=== PATIENT | male | born 1995 | race Caucasian/White ===

== ENCOUNTER 2018-10-18 17:40 | Emergency (ER) | payer SELFPAY ==
[~2018-10-18] VITALS: Ht 154.9 cm; Wt 45.5 kg
[2018-10-18 17:49] VITALS: BP 133/58; Ht 154.9 cm; Wt 45.5 kg
--- NOTE | 2018-10-18 21:40 | ERD ---
ER Documentation Chief Complaint Chief Complaint L 4th digit finger pain/swelling/bruising s/p injury at work HPI Patient is a 23 year-old male presents the ER for concern of left fourth digit pain and swelling. Patient states he dropped a piece of plywood on his finger at work. Patient reports some bleeding under his left fourth digit nailbed. Patient denies any previous fractures or dislocations affected extremity. Patient is right-hand dominant. ROS All systems reviewed and are negative except as per history of present illness. Allergies Allergies: Coded Allergies: No Known Allergy (Unverified , 10/18/18) FmHx Family History: No diabetes Physical Exam Vitals Vital Signs Date Temp Pulse Resp B/P (MAP) Pulse Ox O2 O2 Flow FiO2 Time Delivery Rate 10/18/18 98.1 101 20 133/58 99 17:49 (83) Physical Exam GENERAL: Well-developed, well-nourished male. Appears in no acute distress. HEAD: Normocephalic, atraumatic. EYES: Pupils are equally reactive bilaterally. EOMs grossly intact. No conjunctival erythema. NECK: Supple. No meningismus. Normal range of motion of the neck. LUNG: No acute respiratory distress EXTREMITIES: Equal pulses bilaterally. No peripheral clubbing, cyanosis or edema. No unilateral leg swelling. NEUROLOGIC: Alert and oriented. Moving all four extremities without any difficulty. Normal speech. Steady gait. LUE: No obvious deformity. Mild swelling noted to the distal tip of the fourth digit. Subungual hematoma noted to the fourth digit nail. Able to bend at PIP, DIP and MCP joints of the affected digit. Normal range of motion of wrist. Sensation intact to light touch. Neurovascularly intact. (Able to give thumbs up, make an ok sign, cross digits 2 and 3, thumb to pinky opposition. 2+ RP.) No snuffbox tenderness. Results 24 hrs Current Medications Medications Dose Sig/Milind Start Time Status Last (Trade) Ordered Route PRN Stop Time Admin Dose Reason Admin Ibuprofen 600 mg ONCE ONCE 10/18/18 DC 10/18/18 (Motrin) PO 22:00 22:02 10/18/18 22:01 Procedures/MDM ED COURSE: The patient was stable throughout ED course. I kept the patient and/or family informed of laboratory and diagnostic imaging results throughout the ED course. DIAGNOSTIC IMAGING: Read by radiologist. Patient: JOSHUA MCLEAN : 1995 Age: 23 Sex: M MR #: [id number] [facility] #: [id number] DOS: 10/18/18 2133 Ordering MD: CHRIS LANDA PA-C Location: [facility] Room/Bed: PROCEDURE: Left hand x-ray CLINICAL INDICATION: pain TECHNIQUE: AP, lateral and oblique views of the left hand were obtained. COMPARISON: None FINDINGS: There is normal mineralization. There is a nondisplaced fracture of the distal phalanx of the fourth digit. There are no significant degenerative changes. There is no significant soft tissue swelling. RPTAT: AA IMPRESSION: Nondisplaced fracture of the distal phalanx of the fourth digit. .Antoine Rodriguez MD, MD Date Time Electronically viewed and signed by .Antoine Rodriguez MD, MD on 10/18/2018 22:0 9 .S/ CC: CHRIS LANDA PA-C [phone] PROCEDURES: Nail trephination by me: Anesthesia: none Location: Left fourth digit nailbed Tendon/Joint/Nerves: No injury Technique: Electric cautery pen Procedure: Affected nailbed was cleansed with Betadine. Using electric cautery pen a small bur hole was placed in the nail plate. Dark red blood was expressed from site. Patient's bleeding was easily controlled in the department and there is no indication of anemia. No evidence of compartment syndrome, neurologic injury, vascular injury, open joint, tendon laceration, or foreign body. Patient is appropriate for outpatient follow up. SPLINT APPLICATION: The patient was verbally consented at bedside prior to splint application. Patient was explained the risks, benefits and alternatives to this procedure. The patient was neurovascularly intact prior to and status post application of the splint. The patient tolerated the procedure well with no complications. Splint type: metal finger splint Extremity: left fourth digit Indication: Nondisplaced fracture of the distal phalanx of the fourth digit. MEDICATIONS GIVEN: Ibuprofen Patient tolerated medication well with no adverse reactions. Patient reported improvement in pain. MEDICAL DECISION MAKING: This is a 23-year-old male who presents ER for concerns of left fourth digit pain and swelling after he dropped a piece of wood on it to arrival. Vital signs were reviewed. Patient was afebrile. XR showed Nondisplaced fracture of the distal phalanx of the fourth digit. Nail trephination was performed as discussed above. See procedure note. Patient tolerated procedure well. At this time with the patient presentation most consistent with nondisplaced fracture of the distal phalanx and subungual hematoma. Patient advised to follow-up with orthopedic physical therapist. Low suspicion for dislocation, carpal fracture, scaphoid fracture, metacarpal fracture, mallet finger, trigger finger, osteomyelitis or compartment syndrome. PRESCRIPTIONS: Ibuprofen DISCHARGE: At this time, patient is stable for discharge and outpatient management. I have instructed the patient to follow-up with his/her primary care physician in 1-2 days. I have discussed with the patient the possibility of needing to see an orthopedic physical therapist for further workup and imaging if the pain persists. I have instructed the patient to promptly return to the ER for any new or worsening symptoms including increased pain, swelling, redness, warmth or fever. The patient and/or family expressed understanding of and agreement with this plan. All questions were answered. Home care instructions were provided. Disclaimer: Inadvertent spelling and grammatical errors are likely due to EHR/dictation software use and do not reflect on the overall quality of patient care. Also, please note that the electronic time recorded on this note does not necessarily reflect the actual time of the patient encounter. Departure Diagnosis: Primary Impression: Subungual hematoma Additional Impression: Finger fracture, left Encounter type: initial encounter Finger: ring finger Fracture type: closed Phalanx: unspecified phalanx Fracture alignment: nondisplaced Qualified Codes: S62.605A - Fracture of unspecified phalanx of left ring finger, initial encounter for closed fracture Condition: Fair Patient Instructions: Subungual Hematoma Referrals: COMM[facility]ITY [facility] YOU HAVE RECEIVED A MEDICAL SCREENING EXAM AND THE RESULTS INDICATE THAT YOU DO NOT HAVE A CONDITION THAT REQUIRES URGENT TREATMENT IN THE EMERGENCY DEPARTMENT. FURTHER EVALUATION AND TREATMENT OF YOUR CONDITION CAN WAIT UNTIL YOU ARE SEEN IN YOUR DOCTORS OFFICE WITHIN THE NEXT 1-2 DAYS. IT IS YOUR RESPONSIBILITY TO MAKE AN APPOINTMENT FOR FOLOW-UP CARE. IF YOU HAVE A PRIMARY DOCTOR --you should call your primary doctor and schedule an appointment IF YOU DO NOT HAVE A PRIMARY DOCTOR YOU CAN CALL OUR PHYSICIAN REFERRAL HOTLINE AT IF YOU CAN NOT AFFORD TO SEE A PHYSICIAN YOU CAN CHOSE FROM THE FOLLOWING [facility] [address] [facility] [address] [facility] [address] [facility] [address] [facility] [address] [facility]. [facility] [address] [facility]. [facility] YOU HAVE RECEIVED A MEDICAL SCREENING EXAM AND THE RESULTS INDICATE THAT YOU DO NOT HAVE A CONDITION THAT REQUIRES URGENT TREATMENT IN THE EMERGENCY DEPARTMENT. FURTHER EVALUATION AND TREATMENT OF YOUR CONDITION CAN WAIT UNTIL YOU ARE SEEN IN YOUR DOCTORS OFFICE WITHIN THE NEXT 1-2 DAYS. IT IS YOUR RESPONSIBILITY TO MAKE AN APPOINTMENT FOR FOLOW-UP CARE. IF YOU HAVE A PRIMARY DOCTOR --you should call your primary doctor and schedule and appointment IF YOU DO NOT HAVE A PRIMARY DOCTOR YOU CAN CALL OUR PHYSICIAN REFERRAL HOTLINE AT . IF YOU CAN NOT AFFORD TO SEE A PHYSICIAN YOU CAN CHOSE FROM THE FOLLOWING [facility]: [facility] [address] [place] [address] [facility] [address] [place] [address] [facility] [address] [place] [address] Additional Instructions: Follow up with orthopedic physical therapist. Call your primary care doctor TOMORROW for an appointment during the next 1-2 days.See the doctor sooner or return here if your condition worsens before your appointment time. CHRIS LANDA PA-C Oct 18, 2018 21:40
[2018-10-18] MEDS ORDERED: IBUPROFEN 600 MG TAB PO ONE (22:00)
[2018-10-18] MEDS ORDERED: IBUP-1542 PO (22:31)
[2018-10-18 23:04] VITALS: PULSE 89; RESP 20
== END 2018-10-18 23:05 | disposition home or self-care (01) ==
LOC: FTE 17:40
DX: S60.142A Contusion of left ring finger with damage to nail, initial encounter (principal); S62.665A Nondisplaced fracture of distal phalanx of left ring finger, initial encounter for closed fracture; W20.8XXA Other cause of strike by thrown, projected or falling object, initial encounter; Y92.9 Unspecified place or not applicable